=== PATIENT | female | born 1990 | race African-American/Black ===

== ENCOUNTER 2018-01-29 03:14 | Day surgery (SDC) | payer OTHER ==
[2018-01-29 03:36] VITALS: BP 110/73; TEMP 97.8; BMI 20.1
--- NOTE | 2018-01-29 05:26 | PDOC.LDHP ---
Labor and Delivery H&P Chief complaint: contractions HPI: 27 y/o at 36w2d, patient of Dr. Liang, presents with regular ctx. Denies VB, LOF, or decreased FM. ROS neg for HEENT, CV, pulm, GI, , neuro, psych, skin, musculoskeletal, or constitutional symptoms other than mentioned above. OB History Details: 2 prior SVDs Current complications: none Past Medical History: None Current medications: pre- vitamins Previous surgical history: none Allergies/Adverse Reactions: Allergies Allergy/AdvReac Type Severity Reaction Status Date / Time No Known Drug Allergies Allergy Verified 01/29/18 03:27 Social history: none - Physical Exam Vital signs reviewed and normal: yes General: NAD, resting Lungs: nonlabored breathing Abdomen: gravid Extremeties: no edema FHT: category 1 (130s, mod variability, no decels) [place] contractions every: 3-5 - Vaginal Exam cm dilated: 3 Effacement: 50% Station: -2 - Assessment 27 y/o at 36w2d with no e/o active labor. status reassuring but not reactive at this time. - Plan -: Will hand over to Dr. Petersen for continued monitoring vs BPP.
--- NOTE | 2018-01-29 11:07 | ULT ---
ULTRASOUND BIOPHYSICAL PROFILE: HISTORY: Nonreactive non-stress test. COMPARISON: None. TECHNIQUE: Real-time, rose-scale, and color evaluation of the gravid uterus was performed for a biophysical prof ile. FINDINGS: Biophysical profile score was 8/8. Amniotic fluid index measured 12.2 cm. heart rate document ed at 131 beats per minute. The placenta is anterior. IMPRESSION: Biophysical profile score 8/8. POS: [facility]
--- NOTE | 2018-01-29 17:14 | PRG ---
DATE OF SERVICE: 01/29/2018 PRIMARY OB: Dr. Alvaro Liang. The patient is a 27-year-old female who presented under the care of Dr. Carballo here for evaluation o f labor. During the workup, the heart tracing was nonreactive though without any evidence of m ajor concern. A BPP was ordered for reevaluation and was 8/8. At the time of my evaluation, the pat ient's contractions had dissipated significantly and the patient was comfortable going home with a re assuring BPP and no evidence of labor. The patient was discharged home with instructions to follow u p with her primary OB as scheduled.
== END 2018-01-29 10:23 | disposition home health service (06) ==
LOC: L&D/OP 03:14
PROVIDERS: ATTEND Family Medicine
DX: O47.03 False labor before 37 completed weeks of gestation, third trimester (principal); Z3A.36 36 weeks gestation of pregnancy
CPT/HCPCS: 59025; 76819; 99283

== ENCOUNTER 2018-02-23 20:27 | Inpatient (IN) | payer OTHER ==
[2018-02-23 20:52] VITALS: BMI 20.1
[2018-02-23] MEDS: Lactated Ringer's 1,000 ML IV SCH ×2 (21:00→23:46)
[2018-02-23] MEDS ORDERED: Promethazine HCl 25 MG/ML VIAL IM PRN ×2 (21:21→23:45)
[2018-02-23] MEDS ORDERED: HYDROcodone/Acetaminophen 5/325 mg Tablet PO PRN ×2 (21:21)
[2018-02-23] MEDS ORDERED: NS / Oxytocin 40 units/1000ml 1,000 ML IV PRN (21:21)
[2018-02-23] MEDS ORDERED: Ibuprofen 800 MG TAB PO PRN (21:21)
[2018-02-23] MEDS ORDERED: Butorphanol Tartrate 1 MG/ML VIAL SLOW IVP PRN (21:21)
[2018-02-23] MEDS ORDERED: Lidocaine 1% (PF) 30 ML VIAL SC PRN (21:21)
--- NOTE | 2018-02-23 21:25 | PDOC.LDHP ---
Labor and Delivery H&P Chief complaint: contractions, loss of fluid HPI: Patient of Dr lovell Per Dr lovell..he "fired the patient" about 1 month ago, and will not come in for delivery. The patient has not had other care since that time. HPI: 28 yo at 39 weeks 6 days with c/o SROM and contractions. Good FM. Denies other issues. States received rhogam this Current gestational age (weeks): 39 (6 days) Dating criteria: last menstrual period Grav: 3 Para: 2 OB History Details: x2 Current complications: none Abnormal US findings: No Current medications: pre- vitamins Previous surgical history: none Allergies/Adverse Reactions: Allergies Allergy/AdvReac Type Severity Reaction Status Date / Time No Known Drug Allergies Allergy Verified 01/29/18 03:27 Social history: none - Physical Exam Vital signs reviewed and normal: yes (120/70s) General: NAD Heart: RRR Lungs: CTAB Abdomen: gravid (EFW about 7 pounds) FHT: category 1 [place] contractions every: very 5 minutes or so - Vaginal Exam cm dilated: 4 Effacement: 50% Station: -2 - Assessment L&D Assessment: term patient in labor - Plan Plan: admit to L&D, labor augmentation if indicated, informed consent obtained, anesthesia consult for pain management, other (Unknown GBS as not collected..we will use ACOG GBS risk factors for prophylaxis (none currently))
[2018-02-23 21:34] LABS: Mean Corpuscular Hemoglobin 29.8 pg (27.0-31.0); Mean Corpuscular Volume 87.9 fL (78.0-98.0); Mean Platelet Volume 8.9 fL (7.4-10.4); Platelet Count 123 thou/uL (130-400); Red Blood Cell (RBC) Count 4.03 mill/uL (4.20-5.40); White Blood Cell (WBC) Count 5.8 thou/uL (4.8-10.8)
[2018-02-23 22:01] LABS: Syphilis Antibody Nonreactive (Nonreactive); Syphilis Antibody Index 0.03 S/CO (<1.00 Non-Reactive)
[2018-02-23] MEDS ORDERED: DISCONTINUE ALL PREVIOUS NARCOTICS FS SCH (23:00)
[2018-02-23 23:05] LABS: HBSAg Index 0.19 S/CO (0-0.99); HIV (1/2) Antibody/Antigen Non-Reactive (NonReactive); HIV 1/2 INDEX 0.08 S/CO (<1.00); Hep B Surf Ag Non-Reactive S/CO (NonReactive)
[2018-02-23] MEDS: Bupivacaine 0.5% 20 ML, fentaNYL Citrate/PF 400 MCG in Sodium Chloride 0.9% 72 ML EPIDURAL SCH (23:36)
[2018-02-23] MEDS ORDERED: Eucerin (Mineral Oil/Petrolatum,White) 30 gm Jar TOP PRN (23:45)
[2018-02-23] MEDS ORDERED: Ondansetron HCl/PF 4 MG/2 ML Vial IVP PRN (23:45)
[2018-02-23] MEDS ORDERED: Naloxone HCl 0.4 mg/ml Vial IVP PRN ×2 (23:45)
[2018-02-23] MEDS ORDERED: ePHEDrine/0.9% NaCl/PF SYRINGE 50 mg/10 ml SLOW IVP PRN (23:45)
[2018-02-23] MEDS ORDERED: Acetaminophen 325 MG TAB PO PRN (23:45)
[2018-02-23] MEDS ORDERED: fentaNYL Citrate/PF 400 MCG, Bupivacaine 0.5% 20 ML in Sodium Chloride 0.9% 72 ML EPIDURAL SCH (23:45)
[2018-02-23] MEDS ORDERED: Lactated Ringer's 500 ML IV PRN (23:45)
[2018-02-23] MEDS ORDERED: Communication Order-Pharmacy FS SCH (23:45)
[2018-02-23] MEDS ORDERED: diphenhydrAMINE 50 MG/ML VIAL IVP PRN (23:45)
[2018-02-24] MEDS: Bupivacaine 0.5% 20 ML, fentaNYL Citrate/PF 400 MCG in Sodium Chloride 0.9% 72 ML EPIDURAL SCH (04:50)
--- NOTE | 2018-02-24 06:25 | PDOC.EVN ---
Event Note - Event Note Event Note: L&D Note: Room 6 Patient doing well. Last exam /1. Afebrile, normotensive. FHTs Cat 1 Irregular contractions We will begin pitocin for labor augmentation.
[2018-02-24] MEDS ORDERED: NS w/ Oxytocin 10 units 500 ML IV SCH (06:30)
--- NOTE | 2018-02-24 07:28 | PDOC.EVN ---
Event Note - Event Note Event Note: L&D exam by me: Now Pitocin in use FABIAN in use Strip reviewed Plan of care again discussed with patient and RN
[2018-02-24] MEDS ORDERED: NS / Oxytocin 40 units/1000ml 1,000 ML ONE (09:16)
[2018-02-24] MEDS ORDERED: Lidocaine 1% (PF) 30 ML VIAL ONE (09:16)
--- NOTE | 2018-02-24 10:07 | PDOC.FPROB ---
Addendum entered and electronically signed by Cristel Evans MD 02/24/18 12:44: Pt states to nurse that Motrine makes her itch, makes her face swell. Tramadol makes her itch. Original Note: FMR OB H&P: HPI - History of Present Illness Chief Complaint: SROM and contractions Indentification: 28 yo female at 40.0 wks by LMP/21.2 wk sono History of Present Illness: 28 yo F @ 40 wks by 21.2 wk sono c/w LMP (CLAUDIA 02/24/18) presented last night in active labor. SROM at 1930 yesterday evening. She received rhogam this around 32 weeks. Pt delivered TAGA M via @ 0928 on 02/24/18. Pt was a patient of Dr. Liang; pt was "fired" about 1 month ago. Pt was late to care. She has not had good follow up. No PNC since that time. Primary Care Physician: Fired by Dr. Frederick and Dr. Liang FMR OB H&P: Current - Care : 3 Para: 2001 Gestational age: 40 wks Due date: 02/24/18 Dating Criteria: sono @ 21.2 wk c/w LMP Total weight gain: unknown Course/Complications: Unknown GBS Late to PNC Poor follow up + UDS for marijuana Rhogam received @ 32 wks (mother blood type is B neg) - OB Labs Blood type: B RH: negative Antibody Screen: negative HIV: negative RPR: negative HepBsAg: negative Rubella: immune Quad screen: unknown Urine drug screen: positive (Marijuana) Gonorrhea: negative Chlamydia: negative Pap Smear: unknown 1 hour gtt: 107 GBS: unknown - Anatomy Survey Anatomy survey: Unable to view actual report but per records grossly normal FMR OB H&P: History - Past Medical History PMH: None - OB History OB History: 2 prior deliveries via @ 39 weeks - Surgical History Sx History: None - Social History Social History: +UDS for marijuana 1 PY smoking history (1-2 cigs per day for 7 yrs), reports quitting smoking with this . Denies alcohol use. Denies other drug use. - Family History Family History: DM: maternal aunt, uncle and grandmother Cancer- denies Congenital defects- denies Cardiac- mother with CHF FMR OB H&P: Medications - Current Home Medications: Medication Instructions Recorded Confirmed Type Ferrous Sulfate [Iron] 325 mg PO DAILY 01/29/18 02/23/18 History Vit 108/Iron/Folic AC 1 tablet PO DAILY 01/29/18 02/23/18 History [ One Tablet] Allergies/Adverse Reactions: Allergies Allergy/AdvReac Type Severity Reaction Status Date / Time ibuprofen [From Motrin] Allergy Mild Rash Verified 02/24/18 12:52 tramadol Allergy Verified 02/24/18 10:14 FMR OB H&P: ROS - Review of Systems General: reports: other (headache yesterday that resolved with tylenol). denies : fever/chills Eyes: denies: eye pain, vision changes ENT: denies: nasal congestion, rhinorrhea, sinus pain/pressure, ear pain, sore throat, pain with swallowing Cardiovascular: denies: chest pain, palpitation, edema Respiratory: denies: cough, congestion Gastrointestinal: denies: abdominal pain, nausea, vomiting, diarrhea, constipation, bright red blood Genitourinary (Female): denies: incontinence, dysuria, hematuria Neurologic: reports: numbness (in her feet from epidural). denies: weakness Integumentary: reports: itching (after epidural). denies: rash Psychological: reports: depression (reports post depression with previous child, never saw a doctor for it). denies: anxiety FMR OB H&P: Vital Signs - Maternal Vital signs: Vital Signs - First Documented Temp Pulse Resp BP 98.2 F 85 18 121/75 02/23/18 20:42 02/23/18 20:42 02/23/18 20:42 02/23/18 20:42 FMR OB H&P: Physical Exam - Physical Exam General: NAD, awake, alert and oriented HEENT: normocephalic and atraumatic, PERRLA, MMM, conjunctiva clear, no scleral icterus, grossly normal hearing Neck: supple, no LAD Heart: RRR, normal S1/S2, no murmurs/rubs/gallops, pulses present General: CTAB, no respiratory distress, good air movement, no rales/rhonchi, no wheezing Abdomen: soft, fundus(cm) (fundus below umbilicus, firm) Musculoskeletal: pulses present Skin: no rash, good tugor, capillary refill <2 seconds Lymphatic: no unusual bruising or bleeding, no LAD Psychiatric: intact recent and remote memory, normal mood and affect - Pelvic Exam Vulva: normal hair distribution, appropriate sam stage Cervix: no masses, no lesions Presentation: occipitoanterior FMR OB H&P: Results - Labs Lab results: Laboratory Results - last 24 hr 02/23/18 02/23/18 02/23/18 21:00 21:00 21:00 WBC RBC Hgb Hct MCV MCH MCHC RDW Plt Count MPV Syphilis IgG/IgM Ab Nonreactive Hep Bs Antigen Non-Reactive HIV 1&2 Antigen & Ab Non-Reactive Blood Type B NEGATIVE Antibody Screen POSITIVE H Antibody Identification ANTI-D DUE TO RHOGAM INJECTION 02/23/18 21:00 WBC 5.8 RBC 4.03 L Hgb 12.0 Hct 35.4 L MCV 87.9 MCH 29.8 MCHC 34.0 RDW 12.0 Plt Count 123 L MPV 8.9 Syphilis IgG/IgM Ab Hep Bs Antigen HIV 1&2 Antigen & Ab Blood Type Antibody Screen Antibody Identification FMR OB H&P: A/P - Problem List (1) Term delivered Current Visit: Yes Status: Acute Code(s): O80 - ENCOUNTER FOR FULL-TERM UNCOMPLICATED DELIVERY (2) complicated by maternal drug use, antepartum Current Visit: Yes Status: Acute Code(s): O99.320 - DRUG USE COMPLICATING , UNSPECIFIED TRIMESTER (3) Late care affecting Current Visit: Yes Status: Acute Code(s): O09.30 - SUPRVSN OF PREG W INSUFFICIENT ANTENAT CARE, UNSP TRIMESTER (4) care insufficient Current Visit: Yes Status: Acute Code(s): O09.30 - SUPRVSN OF PREG W INSUFFICIENT ANTENAT CARE, UNSP TRIMESTER (5) Need for rhogam due to Rh negative mother Current Visit: Yes Status: Acute Code(s): Z29.13 - ENCOUNTER FOR PROPHYLACTIC RHO(D) IMMUNE GLOBULIN Discussion: Date/Time: 02/24/18 1007 28 yo now @ 40 wks by 21.2 wk sono c/w LMP delivered TAGA M via @ 0928 on 02/24/18. Term sIUP, delivered -Routine care -, intrapartum epidural, no lacerations. QBL 82 ml -GBS Unknown, no antibiotics intrapartum -Rhogam for Rh negative mother; pt reports receiving rhogam @ 32 wks -Hx UDS+ for MJ: Mec screen for baby -Poor follow up and late to PNC: monitor vitals closely, unit routine -Diet: regular Late to PNC RH negative mother, see above This H&P was discussed with Dr. Garcia who agree with the above documentation and plan. Attending Addendum - Attending Addendum Date/Time: 02/24/18 1501 I personally evaluated the patient and discussed the management with Dr. Evans, Dr. Larson, and Dr. Calderon I agree with the History, Examination, Assessment and Plan documented above with any addition or exceptions noted below. 28 yo female at 40.0 wks by LMP/21.2 wk sono admitted at 39.6 wks with SROM now s/p uncomplicated on 02/24/18 at 0928 Patient presented with SROM. Augmented with pitocin per protocol. No complications with labor. Epidural for pain control. No evidence of distress. ROM 14 hours. Problems in : Poor/incomplete care, Rh negative, Marijuana use, GBS unknown 1. s/p uncomplicated : Routine pp care. Trailing membranes at delivery. Placenta appeared intact but monitor for bleeding. 2. Marijuana use: No maternal drug screen at admission. Add mec and urine screen to . Mom reports no use since December. CM consulted. 3. Rh negative: Rhogam given at around 32 wks. Awaiting cord blood to determine pp dosing 4. GBS unknown: Will monitor for 48 hours ABrayMD
--- NOTE | 2018-02-24 10:09 | PDOC.OPDEL ---
OB Operative/Delivery Note Delivery Dr/Surgeon: Keira Evans Assist: assist by Darren Calderon, attending Kel Garcia Pre-Delivery Diagnosis: active labor Procedure/Post Delivery Dx: spontaneous vaginal delivery Weeks gestation: 40 (40) Anesthesia: epidural - Findings A Sex: male - 1 min: 8 - 5 min: 9 - Additional Findings/Plan Placenta delivered: spontaneous Repaired Obstetrical Laceration: none Estimated blood loss: QBL: 82 ml Compilations/Other Findings: Vaginal Delivery Delivering Physician: Keira Evans, assisted by Darren Calderon Attending Kel Garcia Procedure: Spontaneous Vaginal Delivery Anesthesia: epidural QBL: _82_ ml Pre-op Diagnosis: 1. Term intrauterine in labor 2. Hx of Rh incompatibility, Late to PNC, poor PNC f/up, Marijuana use in , Unknown GBS status Post-op Diagnosis: 1. Term intrauterine , delivered 2. same as above Indications: A 28 y/o female G3P_2_ presents in active labor with SROM Delivery Note: This is 28yo F @ 40 wks who delivered a viable M infant at _0928__. Following an uneventful antepartum course, a vigorous Male was delivered over an intact perineum in the occipitoanterior position. Anterior Shoulder and then remainder of the body delivered. Nuchal cordx1 reduced. The head was held down and mouth and nares were bulb suctioned. Cord clamped and cut and cord blood collected. Placenta delivered intact (with trailing placenta ) in the Vincent presentation with a 3 vessel cord noted. Fundal massage was performed and the fundus was firm. The cervix and vagina were inspected and found to be free of lacerations. went to nursery in good condition for routine care. Apgars were _8_/_9_ at 1 & 5 minutes, respectively. Patient tolerated delivery well and went to after routine recovery/ care. Post delivery plan: routine recovery <Cristel Evans - Last Filed: 02/24/18 12:21> - Additional Findings/Plan Compilations/Other Findings: I was present and participated during the delivery. Uncomplicated . Nuchal cord x1. Easily reduced at perineum. Trailing membranes with delivery of placenta. APGARS 8/9. QBL 82 mL was complicated by poor/incomplete PNC, GBS status unknown, SROM/ROM 14 hours, Marijuana use, Rh negative (s/p Rhogam 32 wks) Continue routine PP care. Janelle <Namrata Garcia - Last Filed: 02/24/18 15:17>
[2018-02-24] MEDS ORDERED: diphenhydrAMINE 50 MG/ML VIAL ONE (10:23)
[2018-02-24] MEDS ORDERED: Milk Of Magnesia 30 ML UDCUP PO PRN (11:28)
[2018-02-24] MEDS ORDERED: Adacel (T-DAP) 0.5 ML VIAL IM ONE (11:28)
[2018-02-24] MEDS ORDERED: Ibuprofen 800 MG TAB PO PRN (11:28)
[2018-02-24] MEDS ORDERED: NS / Oxytocin 40 units/1000ml 1,000 ML IV SCH (11:28)
[2018-02-24] MEDS ORDERED: Bisacodyl 10 MG SUPP PR PRN (11:28)
[2018-02-24] MEDS: Ferrous Sulfate 325 MG TAB PO SCH (18:10)
[2018-02-24] MEDS: Docusate Calcium (SURFAK) 240 MG CAP PO SCH (22:05)
[2018-02-25 05:56] LABS: Hemoglobin 10.4 g/dL (12.0-16.0); Mean Corpuscular Hemoglobin 29.4 pg (27.0-31.0); Mean Corpuscular Volume 89.1 fL (78.0-98.0); Mean Platelet Volume 9.2 fL (7.4-10.4); Platelet Count 102 thou/uL (130-400); RBC Distribution Width 11.8 % (11.5-14.5); Red Blood Cell (RBC) Count 3.54 mill/uL (4.20-5.40); White Blood Cell (WBC) Count 7.1 thou/uL (4.8-10.8)
--- NOTE | 2018-02-25 06:14 | PDOC.FM ---
- Subjective Subjective: Pt is feeling well this morning. Reports some cramping and minimal vaginal bleeding. Ambulating well. Eating, drinking, voiding, and passing flatulence well. - Objective Vital Signs & Weight: Vital Signs (12 hours) Temp Pulse Resp BP Pulse Ox 02/25/18 04:22 87 18 107/67 02/25/18 00:12 97.7 F 99 20 102/60 97 02/24/18 20:50 98.9 F 75 18 110/66 Weight Weight 56.699 kg I&O: 02/23/18 02/24/18 02/25/18 06:59 06:59 06:59 Intake Total 1551 Balance 1551 Result Diagrams: 02/25/18 05:29 <Cristel Evans - Last Filed: 02/25/18 09:47> - Objective Vital Signs & Weight: Vital Signs (12 hours) Pulse Resp BP 02/25/18 04:22 87 18 107/67 Weight Weight 56.699 kg I&O: 02/24/18 02/25/18 02/26/18 06:59 06:59 06:59 Intake Total 1551 Balance 1551 Result Diagrams: 02/25/18 05:29 <Namrata Garcia - Last Filed: 02/25/18 13:10> Phys Exam - Physical Examination Constitutional: NAD HEENT: PERRLA, moist MMs, sclera anicteric Neck: no nodes, supple Respiratory: no wheezing, clear to auscultation bilateral Cardiovascular: RRR 1/6 systolic murmur Gastrointestinal: soft, no distention, positive bowel sounds fundus firm and below umbilicus Musculoskeletal: no edema, pulses present Neurological: moves all 4 limbs Psychiatric: normal affect, A&O x 3 Skin: normal turgor, cap refill <2 seconds <Cristel Evans - Last Filed: 02/25/18 09:47> Dx/Plan (1) Term delivered Code(s): O80 - ENCOUNTER FOR FULL-TERM UNCOMPLICATED DELIVERY Status: Acute (2) complicated by maternal drug use, antepartum Code(s): O99.320 - DRUG USE COMPLICATING , UNSPECIFIED TRIMESTER Status: Acute (3) Late care affecting Code(s): O09.30 - SUPRVSN OF PREG W INSUFFICIENT ANTENAT CARE, UNSP TRIMESTER Status: Acute (4) care insufficient Code(s): O09.30 - SUPRVSN OF PREG W INSUFFICIENT ANTENAT CARE, UNSP TRIMESTER Status: Acute (5) Need for rhogam due to Rh negative mother Code(s): Z29.13 - ENCOUNTER FOR PROPHYLACTIC RHO(D) IMMUNE GLOBULIN Status: Acute - Plan Plan: 28 yo now @ 40 wks by 21.2 wk sono c/w LMP delivered TAGA M infant via @ 0928 on 02/24/18. Term sIUP, delivered -, intrapartum epidural, no lacerations. QBL 82 ml. Trailing membranes at delivery. Minimal lochia. -GBS Unknown. Will monitor for 48 hrs. -Rhogam for Rh negative mother; pt reports receiving rhogam @ 32 wks. Awaiting infant cord blood to determine pp dosing. -Hx UDS+ for MJ, Mec tox screen on baby negative. -CM consulted -Diet: regular -Mom plans to bottle feed baby -VSS, Eat/drinking well, voiding and passing flatus. Ambulating well. -Minimal lochia, fundus firm and below umbilicus. -Continue tylenol for pain control -Because of minimal PNC (late to PNC, poor follow up) and trailing membranes at delivery, pt is higher risk. Will monitor for another 24 hrs. Late to PNC RH negative mother, see above <Cristel Evans - Last Filed: 02/25/18 09:47> (1) Term delivered Code(s): O80 - ENCOUNTER FOR FULL-TERM UNCOMPLICATED DELIVERY Status: Acute (2) complicated by maternal drug use, antepartum Code(s): O99.320 - DRUG USE COMPLICATING , UNSPECIFIED TRIMESTER Status: Acute (3) Late care affecting Code(s): O09.30 - SUPRVSN OF PREG W INSUFFICIENT ANTENAT CARE, UNSP TRIMESTER Status: Acute (4) care insufficient Code(s): O09.30 - SUPRVSN OF PREG W INSUFFICIENT ANTENAT CARE, UNSP TRIMESTER Status: Acute (5) Need for rhogam due to Rh negative mother Code(s): Z29.13 - ENCOUNTER FOR PROPHYLACTIC RHO(D) IMMUNE GLOBULIN Status: Acute <Namrata Garcia - Last Filed: 02/25/18 13:10> Attending Addendum - Attending Addendum Date/Time: 02/25/18 1306 I personally evaluated the patient and discussed the management with Dr. Evans, Dr. Larson, and Dr. Calderon I agree with the History, Examination, Assessment and Plan documented above with any addition or exceptions noted below. 28 yo female at s/p uncomplicated at 40.0 wks on 02/24/18 at 0928 Patient doing well this AM. Request early d/c. Lochia mild. Ambulating. Voiding well. Problems in : Poor/incomplete care, Rh negative, Marijuana use, GBS unknown 1. s/p uncomplicated : Routine pp care. 2. Marijuana use: No maternal drug screen at admission. Add mec and urine screen to infant. Mom reports no use since December. CM consulted. 3. Rh negative: Rhogam given at around 32 wks. Infant blood type O pos. Give Rhogam. 4. GBS unknown: Will monitor for 48 hours 5. Thrombocytopenia: ITP vs gestational thrombocytopenia. No evidence of DIC or TTP. Risk for Hep C. Will rule out. No prior history per patient for low platelets. Platelets on PNV labs 123K. Possible d/c this afternoon otherwise continue to monitor. Not able to d/c infant home with mother today. ReneeMD <Namrata Garcia - Last Filed: 02/25/18 13:10>
[2018-02-25] MEDS: Ferrous Sulfate 325 MG TAB PO SCH ×2 (09:42→19:44)
[2018-02-25] MEDS: Docusate Calcium (SURFAK) 240 MG CAP PO SCH ×2 (09:44→21:38)
[2018-02-25 14:15] LABS: Hep C IgG Ab Non-Reactive (NonReactive); Hep C Index 0.05 S/CO (0-0.79)
[2018-02-26] MEDS: Acetaminophen 325 MG TAB PO PRN ×2 (00:42→08:49)
--- NOTE | 2018-02-26 05:48 | PDOC.FM ---
- Subjective Subjective: Pt feeling well. Ambulating, eating and drinking well. Voiding and stooling normally. Pain well controlled. Minimal lochia - Objective Vital Signs & Weight: Vital Signs (12 hours) Temp Pulse Resp BP Pulse Ox 02/25/18 21:40 97.9 F 63 20 126/80 98 Weight Weight 56.699 kg I&O: 02/24/18 02/25/18 02/26/18 06:59 06:59 06:59 Intake Total 1551 Balance 1551 Result Diagrams: 02/25/18 05:29 <Cristel Evans - Last Filed: 02/26/18 08:56> - Objective Vital Signs & Weight: Vital Signs (12 hours) Temp Pulse Resp BP Pulse Ox 02/26/18 08:53 97.6 F 64 20 108/70 96 Weight Weight 56.699 kg I&O: 02/25/18 02/26/18 02/27/18 06:59 06:59 06:59 Intake Total 1551 Balance 1551 Result Diagrams: 02/25/18 05:29 <Namrata Garcia - Last Filed: 02/26/18 14:59> Phys Exam - Physical Examination Constitutional: NAD HEENT: PERRLA, moist MMs Neck: no nodes, supple Respiratory: no wheezing, no rales, no rhonchi, clear to auscultation bilateral Cardiovascular: RRR, no significant murmur Gastrointestinal: soft, non-tender, positive bowel sounds Fundus firm, below umbilicus, appropriately TTP Musculoskeletal: no edema, pulses present Neurological: moves all 4 limbs +cervical LAD Psychiatric: normal affect, A&O x 3 Skin: no rash, cap refill <2 seconds <Cristel Evans - Last Filed: 02/26/18 08:56> Dx/Plan (1) Term delivered Code(s): O80 - ENCOUNTER FOR FULL-TERM UNCOMPLICATED DELIVERY Status: Acute (2) complicated by maternal drug use, antepartum Code(s): O99.320 - DRUG USE COMPLICATING , UNSPECIFIED TRIMESTER Status: Acute (3) Late care affecting Code(s): O09.30 - SUPRVSN OF PREG W INSUFFICIENT ANTENAT CARE, UNSP TRIMESTER Status: Acute (4) care insufficient Code(s): O09.30 - SUPRVSN OF PREG W INSUFFICIENT ANTENAT CARE, UNSP TRIMESTER Status: Acute (5) Need for rhogam due to Rh negative mother Code(s): Z29.13 - ENCOUNTER FOR PROPHYLACTIC RHO(D) IMMUNE GLOBULIN Status: Acute - Plan Plan: 28 yo now @ 40 wks by 21.2 wk sono c/w LMP delivered JASONA M infant via @ 0928 on 02/24/18. Term sIUP, delivered -, intrapartum epidural, no lacerations. QBL 82 ml. Trailing membranes at delivery. -GBS Unknown. Afebrile for 48 hrs, Minimal lochia, fundus firm and below umbilicus. -Rhogam for Rh negative mother; pt reports receiving rhogam @ 32 wks. Baby's blood type Rh+ which is noncompatible (O+) - Will dose with rhogam today. -Hx UDS+ for MJ, urine tox screen on baby negative -CM consulted -Diet: regular -Mom bottle feeding -VSS, Eat/drinking well, voiding and stooling normally. Ambulating well. -Pain well controlled. Continue tylenol for pain. -Discharge to home today Late to PNC RH negative mother, see above <Cristel Evans - Last Filed: 02/26/18 08:56> (1) Term delivered Code(s): O80 - ENCOUNTER FOR FULL-TERM UNCOMPLICATED DELIVERY Status: Acute (2) complicated by maternal drug use, antepartum Code(s): O99.320 - DRUG USE COMPLICATING , UNSPECIFIED TRIMESTER Status: Acute (3) Late care affecting Code(s): O09.30 - SUPRVSN OF PREG W INSUFFICIENT ANTENAT CARE, UNSP TRIMESTER Status: Acute (4) care insufficient Code(s): O09.30 - SUPRVSN OF PREG W INSUFFICIENT ANTENAT CARE, UNSP TRIMESTER Status: Acute (5) Need for rhogam due to Rh negative mother Code(s): Z29.13 - ENCOUNTER FOR PROPHYLACTIC RHO(D) IMMUNE GLOBULIN Status: Acute <Namrata Garcia - Last Filed: 02/26/18 14:59> Attending Addendum - Attending Addendum Date/Time: 02/26/18 1878 I personally evaluated the patient and discussed the management with Dr. Evans, Dr. Larson, and Dr. Calderon I agree with the History, Examination, Assessment and Plan documented above with any addition or exceptions noted below. 28 yo female at s/p uncomplicated at 40.0 wks on 02/24/18 at 0928 Patient doing well. Lochia appropriate. Pain controlled. Ok to d/c to home today. Problems in : Poor/incomplete care, Rh negative, Marijuana use, GBS unknown 1. s/p uncomplicated : Ok to d/c today. Follow up at [facility] with Dr. Keira Evans in 2 wks. 2. Marijuana use: No maternal drug screen at admission. Mom reports no use since December. CM consulted. 3. Rh negative: Rhogam given at around 32 wks. Infant blood type O pos. s/p Rhogam. 4. Thrombocytopenia: ITP vs gestational thrombocytopenia. No evidence of DIC or TTP. Negative Hep C. Monitor at 6 wks pp. D/c with follow up in 2 wks. Janelle <Namrata Garcia - Last Filed: 02/26/18 14:59>
[2018-02-26] MEDS: Ferrous Sulfate 325 MG TAB PO SCH ×2 (08:05→12:41)
[2018-02-26] MEDS: Docusate Calcium (SURFAK) 240 MG CAP PO SCH (08:43)
[2018-02-26 08:56] VITALS: BP 108/70; TEMP 97.6
== END 2018-02-26 13:35 | disposition home or self-care (01) | DRG 775 ==
LOC: L&D/OP 20:27 → L&D 21:20 → 3SW 02-24 12:09
PROVIDERS: ADMIT Student in an Organized Health Care Education/Training Program; ATTEND Family Medicine
PROC: 10E0XZZ Delivery of Products of Conception, External Approach (ICD-10-PCS; principal; 2018-02-24)
DX: O99.323 Drug use complicating pregnancy, third trimester (principal); O99.12 Other diseases of the blood and blood-forming organs and certain disorders involving the immune mechanism complicating childbirth; Z37.0 Single live birth; Z3A.40 40 weeks gestation of pregnancy; D69.6 Thrombocytopenia, unspecified; O69.81X0 Labor and delivery complicated by cord around neck, without compression, not applicable or unspecified; O26.893 Other specified pregnancy related conditions, third trimester; Z67.21 Type B blood, Rh negative
CPT/HCPCS: 36415; 51702; 85027; 85461; 86762; 86780; 86803; 86850; 86870; 86900; 86901; 87340; 87389; 90384; 96372; J1200; J2001; J3010; J3490; J7050

== ENCOUNTER 2018-09-08 11:04 | Emergency (ER) | payer OTHER ==
[2018-09-08] MEDS ORDERED: Ondansetron ODT 4 MG TAB ONE (12:20)
== END 2018-09-08 13:25 | disposition home or self-care (01) ==
LOC: ERS 11:04
DX: R11.2 Nausea with vomiting, unspecified (principal)
CPT/HCPCS: 99283; Q0162

== ENCOUNTER 2019-01-21 13:55 | Outpatient (CLI) | payer OTHER ==
--- NOTE | 2019-01-21 15:40 | ULT ---
ULTRASOUND OBSTETRICAL COMPLETE: DATE: 01/21/2019 HISTORY: Supervision of normal in second trimester FINDINGS: number: pagan lie: Vertex Maternal cervix: 3 cm. Closed. Placenta: Anterior. No placenta previa. Amniotic fluid volume: LAVELL = 14.5cm heart rate: 139 bpm The following anatomy is visualized, with no evidence of anomalies: Head, cerebellum, lateral ventricles, four-chamber heart, stomach, kidneys, cord insertion, bladder, cervical spine, thoracic spine, lumbar spine, sacrum, nose and lips, upper extremities, lower extreme venous, and three-vessel cord. biometry: Biparietal diameter (BPD): 6.3 cm 25 w 4 d Head circumference (HC): 22.9 cm 25 w 0 d Abdominal circumference (AC): 20.1 cm 24 w 5 d Femur length (FL): 4.5 cm 25 w 0 d Average ultrasound age (AUA): 24 w 6 d Estimated date of delivery (CLAUDIA): 05/07/2015 Estimated weight (EFW): 744 g +/- 110 g IMPRESSION: 1) Live 2nd trimester intrauterine gestation. 2) Estimated gestational age of 24 weeks, 6 days 3) cephalic lie. 4) no anatomic abnormality identified.
== END 2019-01-21 13:56 | disposition home or self-care (01) ==
LOC: SCSULT 13:55
PROVIDERS: ATTEND Nurse Practitioner
DX: Z34.02 Encounter for supervision of normal first pregnancy, second trimester (principal); Z3A.24 24 weeks gestation of pregnancy
CPT/HCPCS: 76805

== ENCOUNTER 2019-05-05 05:30 | Inpatient (IN) | payer OTHER ==
[~2019-05-05 05:30] MED LIST: Butorphanol Tartrate 1 MG/ML VIAL SLOW IVP PRN; Docusate 100 MG CAP PO PRN; HYDROcodone/Acetaminophen 5/325 mg Tablet PO PRN; Lidocaine 1% (PF) 30 ML VIAL SC PRN; NS / Oxytocin 40 units/1000ml 1,000 ML IV PRN; NS w/ Oxytocin 10 units 500 ML IV SCH; Ondansetron PF 4 MG/2 ML Vial IVP PRN; Promethazine HCl 25 MG/ML VIAL IM PRN; hydrALAZINE 20 MG/ML VIAL SLOW IVP PRN
[2019-05-05 06:14] VITALS: BMI 23.7
[2019-05-05 06:38] LABS: Hemoglobin 11.8 g/dL (12.0-16.0); Mean Corpuscular HGB CONC 34.4 g/dL (32.0-36.0); Mean Corpuscular Hemoglobin 29.3 pg (27.0-31.0); Mean Corpuscular Volume 85.2 fL (78.0-98.0); Mean Platelet Volume 9.8 fL (7.4-10.4); Platelet Count 108 thou/uL (130-400); RBC Distribution Width 12.9 % (11.5-14.5); Red Blood Cell (RBC) Count 4.02 mill/uL (4.20-5.40); White Blood Cell (WBC) Count 5.7 thou/uL (4.8-10.8)
[2019-05-05] MEDS: Lactated Ringer's 1,000 ML IV SCH ×2 (06:48→13:42)
[2019-05-05 07:21] LABS: HBSAg Index 0.18 S/CO (0-0.99); Hep B Surf Ag Non-Reactive S/CO (NonReactive); Syphilis Antibody Nonreactive (Nonreactive); Syphilis Antibody Index 0.03 S/CO (<1.00 Non-Reactive)
[2019-05-05] MEDS ORDERED: Fentanyl 4 mcg/Bup 0.1% Cadd 100 ML ONE (07:41)
[2019-05-05] MEDS ORDERED: Naloxone HCl 0.4 mg/ml Vial IVP PRN ×2 (08:19)
[2019-05-05] MEDS ORDERED: diphenhydrAMINE 50 MG/ML VIAL IVP PRN (08:19)
[2019-05-05] MEDS ORDERED: Promethazine HCl 25 MG/ML VIAL IM PRN (08:19)
[2019-05-05] MEDS ORDERED: Ondansetron PF 4 MG/2 ML Vial IVP PRN ×2 (08:19→11:48)
[2019-05-05] MEDS ORDERED: Lactated Ringer's 500 ML IV PRN (08:19)
[2019-05-05] MEDS ORDERED: Acetaminophen 325 MG TAB PO PRN (08:19)
[2019-05-05] MEDS ORDERED: ePHEDrine/0.9% NaCl/PF SYRINGE 50 mg/10 ml SLOW IVP PRN (08:19)
[2019-05-05] MEDS ORDERED: Fentanyl 4 mcg/Bupivacaine 0.1% Cassette 100 ML EPIDURAL SCH (08:30)
[2019-05-05] MEDS ORDERED: Communication Order-Pharmacy FS SCH (08:30)
[2019-05-05] MEDS ORDERED: Milk Of Magnesia 30 ML UDCUP PO PRN (11:48)
[2019-05-05] MEDS ORDERED: Bisacodyl 10 MG SUPP PR PRN (11:48)
[2019-05-05] MEDS ORDERED: diphenhydrAMINE 25 MG CAP PO PRN (11:48)
[2019-05-05] MEDS ORDERED: hydrALAZINE 20 MG/ML VIAL SLOW IVP PRN (11:48)
[2019-05-05] MEDS ORDERED: Preparation H Ointment 28 GM TUBE PR PRN (11:48)
[2019-05-05] MEDS ORDERED: NS / Oxytocin 40 units/1000ml 1,000 ML IV SCH (11:48)
[2019-05-05] MEDS ORDERED: Lanolin Ointment 7 GM TUBE TOP PRN (11:48)
--- NOTE | 2019-05-05 12:52 | OP ---
DATE OF PROCEDURE: 05/05/2019 The patient delivered a male infant on 05/05/2019 at 10:24 a.m. by an uncomplicated term spontaneous vaginal delivery. Gestational age was 39 weeks and 5 days. Weight 2370 g. Apgars were 8 and 9. Placenta delivered spontaneously followed by Pitocin infusion. There were no lacerations. Quantitative blood loss [address] Petersen is the delivering physician. Counts were correct. Mother and baby were stable in the immediate . Job ID: [id number]
[2019-05-05] MEDS: Ibuprofen 800 MG TAB PO SCH ×2 (14:15→21:18)
[2019-05-05] MEDS: Ferrous Sulfate 325 MG TAB PO SCH (17:40)
[2019-05-05] MEDS: Docusate Calcium (SURFAK) 240 MG CAP PO SCH (21:18)
[2019-05-06] MEDS ORDERED: Adacel (T-DAP) 0.5 ML SYRINGE IM ONE (09:00)
[2019-05-06 13:39] LABS: #Eosinphils 0.1 thou/uL (0.0-0.7); #Lymphocytes 1.6 thou/uL (1.20-3.40); #Monocytes 0.5 thou/uL (0.11-0.59); #Neutrophils 5.3 thou/uL (1.40-6.50); %Basophils 0.3 % (0.0-1.0); %Eosinophils 1.5 % (0.0-10.0); %Monocytes 6.4 % (0.0-10.0); %Neutrophils 70.8 % (42.0-75.0); Hemoglobin 10.5 g/dL (12.0-16.0); Mean Corpuscular HGB CONC 33.7 g/dL (32.0-36.0); Mean Corpuscular Hemoglobin 29.9 pg (27.0-31.0); Mean Corpuscular Volume 88.7 fL (78.0-98.0); Mean Platelet Volume 10.4 fL (7.4-10.4); Platelet Count 94 thou/uL (130-400); RBC Distribution Width 12.9 % (11.5-14.5); White Blood Cell (WBC) Count 7.5 thou/uL (4.8-10.8)
[2019-05-06] MEDS: Ibuprofen 800 MG TAB PO SCH ×3 (14:22→22:08)
[2019-05-06] MEDS: Docusate Calcium (SURFAK) 240 MG CAP PO SCH ×2 (22:09→22:14)
[2019-05-06] MEDS: Ferrous Sulfate 325 MG TAB PO SCH (22:13)
[2019-05-06] MEDS: Prenatal Vitamin 1 TAB PO SCH (22:14)
[2019-05-07] MEDS: Ibuprofen 800 MG TAB PO SCH ×2 (06:04→16:04)
[2019-05-07] MEDS: Docusate Calcium (SURFAK) 240 MG CAP PO SCH (08:14)
[2019-05-07] MEDS: Prenatal Vitamin 1 TAB PO SCH (08:14)
[2019-05-07] MEDS: Ferrous Sulfate 325 MG TAB PO SCH (08:15)
[2019-05-07 08:28] VITALS: BP 106/62; TEMP 98.6
== END 2019-05-07 15:50 | disposition home or self-care (01) | DRG 807 ==
LOC: L&D 05:39 → 3SW 13:32
PROVIDERS: ADMIT Obstetrics & Gynecology; ATTEND Obstetrics & Gynecology
PROC: 10E0XZZ Delivery of Products of Conception, External Approach (ICD-10-PCS; principal; 2019-05-05)
PROC: 3E0P7VZ Introduction of Hormone into Female Reproductive, Via Natural or Artificial Opening (ICD-10-PCS; 2019-05-05)
PROC: 3E033VJ Introduction of Other Hormone into Peripheral Vein, Percutaneous Approach (ICD-10-PCS; 2019-05-05)
DX: O62.3 Precipitate labor (principal); Z37.0 Single live birth; O99.02 Anemia complicating childbirth; D64.9 Anemia, unspecified; Z3A.39 39 weeks gestation of pregnancy; Z88.5 Allergy status to narcotic agent; Z88.6 Allergy status to analgesic agent
CPT/HCPCS: 36415; 51702; 85025; 85027; 85461; 86780; 86850; 86900; 86901; 87340; 90384; 96372; J2590

== ENCOUNTER 2019-05-25 14:08 | Emergency (ER) | payer OTHER | END 2019-05-25 16:00 | disposition home or self-care (01) | LOC: ERS 14:08 | DX: N64.4 Mastodynia (principal) | CPT/HCPCS: 99283 ==

== ENCOUNTER 2022-01-30 10:54 | Emergency (ER) | payer OTHER, SELFPAY ==
[2022-01-30] MEDS ORDERED: Ondansetron PF 4 MG/2 ML Vial ONE (11:17)
[2022-01-30 12:36] LABS: #Basophils 0.1 thou/uL (0.0-0.2); #Lymphocytes 1.4 thou/uL (1.20-3.40); #Monocytes 0.5 thou/uL (0.11-0.59); #Neutrophils 3.6 thou/uL (1.40-6.50); %Basophils 1.2 % (0.0-1.0); %Eosinophils 0.5 % (0.0-10.0); %Lymphocytes 24.7 % (21.0-51.0); %Monocytes 9.5 % (0.0-10.0); Hemoglobin 10.6 g/dL (12.0-16.0); Mean Corpuscular HGB CONC 31.5 g/dL (32.0-36.0); Mean Corpuscular Hemoglobin 23.2 pg (27.0-31.0); Mean Corpuscular Volume 73.9 fL (78.0-98.0); Platelet Count 202 thou/uL (130-400); RBC Distribution Width 18.4 % (11.5-14.5); Red Blood Cell (RBC) Count 4.57 mill/uL (4.20-5.40); White Blood Cell (WBC) Count 5.6 thou/uL (4.8-10.8)
[2022-01-30 12:41] LABS: BHCG - Serum POSITIVE (NEGATIVE); Pregs Control Background? CLEAR/WHITE (CLR/WHITE); Pregs Control Bar Appear? YES (CONTROL BAR)
[2022-01-30 12:54] LABS: Anisocytosis SLIGHT = 6-15 cells (100X) (0-5/hpf); Burr Cells SLIGHT = 2-5 cells (100X) (0-1/hpf); Hypochromia SLIGHT = 6-15 cells (100X) (0-5/hpf); MDiff Complete? YES; Microcytosis SLIGHT = 6-15 cells (100X) (0-5/hpf); Ovalocytes SLIGHT = 2-5 cells (100X) (0-1/hpf); Platelet Morphology Comment Appears Adequate; Polychromasia SLIGHT = 2-3 cells (100X) (0-2/hpf)
[2022-01-30 13:00] LABS: ALT (SGPT) 9 U/L (8-55); AST (SGOT) 12 U/L (5-34); Albumin 4.3 g/dL (3.5-5.0); Alkaline Phosphatase 27 U/L (40-110); Anion Gap 16 mmol/L (10-20); BUN (Urea Nitrogen) 13 mg/dL (7.0-18.7); Bilirubin, Total 0.4 mg/dL (0.2-1.2); Calc. Creatinine Clearance 0 mL/min (70-130); Calcium 9.3 mg/dL (7.8-10.44); Carbon Dioxide 19 mmol/L (22-29); Chloride 103 mmol/L (98-107); Estimated GFR 109; Globulin 3.3 g/dL (2.4-3.5); Glucose 71 mg/dL (70-105); Lipase 5 U/L (8-78); Potassium 3.2 mmol/L (3.5-5.1); Protein, Total 7.6 g/dL (6.0-8.3); Sodium 135 mmol/L (136-145)
[2022-01-30 13:19] LABS: Bacteria/HPF None Seen HPF (None Seen); Bilirubin Negative (Negative); Blood, Urine Trace (Negative); Clarity Clear (Clear); Glucose, Urine (Dipstick) Normal (Negative); Ketone, Urine Greater than 150 mg/dL (Negative); Leukocyte 75 Leu/uL (Negative); Nitrite Negative (Negative); Protein, Urine (Dipstick) 30 mg/dL (Neg-Trace); Specific Gravity, Urine 1.033 (1.002-1.036); Urobilinogen Normal mg/dL (Less than 2)
[2022-01-30 13:37] LABS: Amphetamine Not Detected (NotDetected); Barbiturates Screen Not Detected (NotDetected); Benzodiazepine Screen Not Detected (NotDetected); Cocaine Metabolite Screen Not Detected (NotDetected); Methadone Not Detected (NotDetected); Methamphetamine Not Detected (NotDetected); Opiate Screen Not Detected (NotDetected); Oxycodone Screen Not Detected (NotDetected); Phencyclidine (PCP) Not Detected (NotDetected); THC/Cannabinoid Screen Detected (NotDetected); Tricyclic Screen Not Detected (NotDetected)
== END 2022-01-30 15:04 | disposition home or self-care (01) ==
LOC: ERS 10:54
DX: O20.0 Threatened abortion (principal); Z3A.01 Less than 8 weeks gestation of pregnancy
CPT/HCPCS: 36415; 76856; 80053; 80306; 81003; 81015; 83690; 84702; 84703; 85025; 96361; 96374; J2405; U0003; U0005

== ENCOUNTER 2022-02-01 08:55 | Emergency (ER) | payer SELFPAY ==
[2022-02-01 09:41] LABS: #Eosinphils 0.1 thou/uL (0.0-0.7); #Lymphocytes 1.3 thou/uL (1.20-3.40); #Monocytes 0.3 thou/uL (0.11-0.59); #Neutrophils 3.7 thou/uL (1.40-6.50); %Basophils 0.3 % (0.0-1.0); %Lymphocytes 24.2 % (21.0-51.0); %Monocytes 6.1 % (0.0-10.0); %Neutrophils 68.5 % (42.0-75.0); Hemoglobin 10.8 g/dL (12.0-16.0); Mean Corpuscular HGB CONC 32.6 g/dL (32.0-36.0); Mean Corpuscular Hemoglobin 23.8 pg (27.0-31.0); Mean Platelet Volume 11.7 fL (7.4-10.4); Platelet Count 186 thou/uL (130-400); RBC Distribution Width 18.3 % (11.5-14.5); Red Blood Cell (RBC) Count 4.53 mill/uL (4.20-5.40); White Blood Cell (WBC) Count 5.4 thou/uL (4.8-10.8)
[2022-02-01 10:01] LABS: Microcytosis SLIGHT = 6-15 cells (100X) (0-5/hpf); Platelet Morphology Comment Appears Adequate; Polychromasia SLIGHT = 2-3 cells (100X) (0-2/hpf)
[2022-02-01 10:49] LABS: Albumin 4.2 g/dL (3.5-5.0)
[2022-02-01 10:50] LABS: Chloride 104 mmol/L (98-107); Sodium 135 mmol/L (136-145)
[2022-02-01 10:51] LABS: Calcium 9.4 mg/dL (7.8-10.44)
[2022-02-01 10:52] LABS: Globulin 3.4 g/dL (2.4-3.5); Glucose 102 mg/dL (70-105); Protein, Total 7.6 g/dL (6.0-8.3)
[2022-02-01 10:53] LABS: Anion Gap 15 mmol/L (10-20); Carbon Dioxide 20 mmol/L (22-29)
[2022-02-01 10:54] LABS: Alkaline Phosphatase 31 U/L (40-110); Bilirubin, Total 0.4 mg/dL (0.2-1.2)
[2022-02-01 10:55] LABS: Calc. Creatinine Clearance 0 mL/min (70-130); Estimated GFR 107
[2022-02-01 10:56] LABS: BUN (Urea Nitrogen) 8 mg/dL (7.0-18.7)
[2022-02-01 10:57] LABS: AST (SGOT) 12 U/L (5-34)
[2022-02-01 10:58] LABS: ALT (SGPT) 7 U/L (8-55)
== END 2022-02-01 13:22 | disposition home or self-care (01) ==
LOC: ERS 08:55
DX: O20.0 Threatened abortion (principal); Z3A.08 8 weeks gestation of pregnancy
CPT/HCPCS: 36415; 80053; 84702; 85025; 86850; 86900; 86901; 90384; 96372; 99284

== ENCOUNTER 2022-12-06 16:11 | Emergency (ER) | payer OTHER | END 2022-12-06 16:38 | disposition home or self-care (01) | LOC: ERS 16:11 | DX: M65.4 Radial styloid tenosynovitis [de Quervain] (principal) | CPT/HCPCS: 99283 ==

== ENCOUNTER 2023-03-23 07:46 | Emergency (ER) | payer OTHER | END 2023-03-23 08:44 | disposition home or self-care (01) | LOC: ERS 07:46 | DX: H60.502 Unspecified acute noninfective otitis externa, left ear (principal); H73.92 Unspecified disorder of tympanic membrane, left ear | CPT/HCPCS: 99282 ==

== ENCOUNTER 2023-11-23 08:14 | Emergency (ER) | payer MEDICAID, OTHER, SELFPAY ==
[2023-11-23] MEDS ORDERED: Ketorolac Tromethamine 30 MG (1 mL) VIAL ONE (09:17)
[2023-11-23 09:50] LABS: Pregnancy Test - Urine (BHCG) POSITIVE (Negative); Pregu Control Background? CLEAR/WHITE (CLR/WHITE); Pregu Control Bar Appear? YES (CONTROL BAR)
== END 2023-11-23 10:01 ==
LOC: ERS 08:14
DX: B34.9 Viral infection, unspecified (principal); Z32.01 Encounter for pregnancy test, result positive
CPT/HCPCS: 81025; 99284; J1885

== ENCOUNTER 2023-12-03 17:44 | Emergency (ER) | payer MEDICAID, OTHER ==
[2023-12-03 20:01] LABS: #Basophils Less than 0.03 10x3/uL (0.0-0.2); #Eosinphils Less than 0.03 10x3/uL (0.0-0.7); %Basophils 0.2 % (0.0-1.0); %Eosinophils 0.2 % (0.0-10.0); %Lymphocytes 16.1 % (21.0-51.0); %Monocytes 6.3 % (0.0-10.0); %Neutrophils 76.9 % (42.0-75.0); Hematocrit 37.5 % (36.0-47.0); Hemoglobin 12.6 g/dL (12.0-16.0); Mean Corpuscular HGB CONC 33.6 g/dL (32.0-36.0); Mean Corpuscular Hemoglobin 28.1 pg (27.0-31.0); Mean Corpuscular Volume 83.7 fL (78.0-98.0); Mean Platelet Volume 9.7 fL (7.4-10.4); Platelet Count 282 10x3/uL (130-400); RBC Distribution Width 13.7 % (11.5-14.5); Red Blood Cell (RBC) Count 4.48 mill/uL (4.20-5.40)
[2023-12-03 20:15] LABS: ALT (SGPT) 14 U/L (8-55); AST (SGOT) 14 U/L (5-34); Albumin 3.9 g/dL (3.5-5.0); Alkaline Phosphatase 34 U/L (40-110); Anion Gap 13 mmol/L (10-20); BUN (Urea Nitrogen) 9 mg/dL (7.0-18.7); Bilirubin, Total 0.3 mg/dL (0.2-1.2); Calc. Creatinine Clearance 0 mL/min (70-130); Calcium 9.3 mg/dL (7.8-10.44); Carbon Dioxide 18 mmol/L (22-29); Chloride 104 mmol/L (98-107); Estimated GFR 106; Globulin 3.2 g/dL (2.4-3.5); Glucose 105 mg/dL (70-105); Potassium 3.2 mmol/L (3.5-5.1); Protein, Total 7.1 g/dL (6.0-8.3); Sodium 132 mmol/L (136-145)
[2023-12-03 20:43] LABS: Bilirubin Small (Negative); Blood, Urine Large (Negative); Clarity Cloudy (Clear); Glucose, Urine (Dipstick) Negative (Negative); Ketone, Urine 15 mg/dL (Negative); Leukocyte Negative (Negative); Nitrite Negative (Negative); Protein, Urine (Dipstick) > or equal to 300 mg/dL (Neg-Trace); Urobilinogen 0.2 mg/dL (Less than 2)
[2023-12-03 20:44] LABS: RBC/HPF Greater than 50 HPF (0-3); Specific Gravity, Urine 1.032 (1.002-1.036)
[2023-12-03 20:45] LABS: CAUTI Indications for Culture Pelvic or flank pain; Squamous Epithelial 0-3 HPF (0-3); WBC/HPF 0-3 HPF (0-3)
[2023-12-03 20:46] LABS: Bacteria/HPF Rare-Few HPF (None Seen)
[2023-12-03 20:47] LABS: Urine Culture Reflex No No
== END 2023-12-03 23:00 | disposition home or self-care (01) ==
LOC: ERS 17:44
DX: O03.4 Incomplete spontaneous abortion without complication (principal)
CPT/HCPCS: 36415; 76856; 80053; 81001; 84702; 85025; 86900; 86901

== ENCOUNTER 2024-04-08 18:48 | Emergency (ER) | payer OTHER, SELFPAY ==
[2024-04-08] MEDS ORDERED: diphenhydrAMINE 50 MG/ML VIAL ONE (19:30)
[2024-04-08] MEDS ORDERED: EPINEPHrine 1 MG/ML VIAL ONE (19:30)
[2024-04-08] MEDS ORDERED: Famotidine/PF 20 mg/2ml Vial ONE (19:30)
== END 2024-04-08 21:09 | disposition home or self-care (01) ==
LOC: ERS 18:48
DX: T63.441A Toxic effect of venom of bees, accidental (unintentional), initial encounter (principal); L50.9 Urticaria, unspecified
CPT/HCPCS: 71045; 96372; 96374; 96375; J0171; J1200; J3490